=== PATIENT | female | born 1995 | race Caucasian/White ===

== ENCOUNTER → 2019-10-22 13:44 | Outpatient (BNVA) | payer BC, SELFPAY | PROVIDERS: Visit Provider Specialist | DX: R29.90 Unspecified symptoms and signs involving the nervous system (principal); G43.711 Chronic migraine without aura, intractable, with status migrainosus; F84.5 Asperger's syndrome | CPT/HCPCS: 99204 ==

== ENCOUNTER 2019-11-13 08:54 | Outpatient (CLI) | payer BC, SELFPAY ==
--- NOTE | 2019-11-13 08:30 | USCV_ITS ---
Luca Andrade Age: 24 Gender: F : 1995 Exam Date: 11/13/2019 10:24 Ordering Phys: Vielka Jaimes MD Technologist: Lexy Cuevas Exam Location: [facility] [place] Indication: palpitaions BP: / HR: 74 Rhythm: Sinus Technical Quality: Adequate MEASUREMENTS (Male / Female) Normal Values 2D ECHO LV Diastolic Diameter PLAX 3.7 cm 4.2 - 5.9 / 3.9 - 5.3 cm LV Systolic Diameter PLAX 2.5 cm IVS Diastolic Thickness 1.0 cm 0.6 - 1.0 / 0.6 - 0.9 cm IVS Systolic Thickness 1.1 cm LVPW Diastolic Thickness 0.8 cm 0.6 - 1.0 / 0.6 - 0.9 cm LVPW Systolic Thickness 1.3 cm LVOT Diameter 2.0 cm LV Ejection Fraction 2D Teich 59.7 % LV Ejection Fraction MOD 2C 71.8 % LV Ejection Fraction 2C AL 73.6 % LA Diameter 2.6 cm LA Width 2.3 cm LA Height 4.8 cm RA Width 3.0 cm RA Height 4.1 cm M-MODE LV Diastolic Diameter MM 3.9 cm 4.2 - 5.9 / 3.9 - 5.3 cm LV Systolic Diameter MM 2.6 cm LV Ejection Fraction MM Teich 59.6 % IVS Diastolic Thickness MM 0.6 cm 0.6 - 1.0 / 0.6 - 0.9 cm IVS Systolic Thickness MM 0.8 cm LVPW Diastolic Thickness MM 0.9 cm 0.6 - 1.0 / 0.6 - 0.9 cm LVPW Systolic Thickness MM 1.2 cm Aortic Annulus Diameter 2.9 cm LA Ao Ratio MM 0.9 MV E Point Septal Separation 0.3 cm DOPPLER AV Peak Velocity 85.0 cm/s LVOT Peak Velocity 96.0 cm/s AV Area Cont Eq vti 3.3 cm squared AV Area Cont Eq pk 3.5 cm squared MV Peak Velocity 82.0 cm/s MV Area PHT 5.6 cm squared Mitral E to A Ratio 1.6 MV E' Velocity 12.0 cm/s Mitral E to MV E' Ratio 7.7 Mitral E to LV E' Lateral Ratio 6.7 Mitral E to LV E' Septal Ratio 9.2 TR Peak Velocity 129.0 cm/s TR Peak Gradient 6.6 mmHg Right Atrial Pressure 3.0 mmHg Pulmonary Artery Systolic Pressu 9.7 mmHg PV Peak Velocity 69.0 cm/s RV Acceleration Time 0.1 s FINDINGS Left Ventricle Normal left ventricular cavity size. Normal left ventricular systolic function. No regional wall motion abnormalities. Left ventricular ejection fraction is estimated at 59 %. Normal diastolic function. Right Ventricle The right ventricle is normal in size and function. Right Atrium The right atrium is normal in size. Left Atrium The left atrium is normal in size. Mitral Valve Structurally normal mitral valve without significant stenosis or prolapse. There is no mitral regurgitation. Aortic Valve Structurally normal aortic valve without significant sclerosis or stenosis. There is no aortic regurgitation. Tricuspid Valve Structurally normal tricuspid valve without significant stenosis or regurgitation. Pulmonary artery systolic pressure is normal. Pulmonic Valve Structurally normal pulmonic valve without significant stenosis. There is no pulmonic regurgitation. Pericardium Normal pericardium without effusion. Aorta Normal ascending aorta dimension. CONCLUSIONS 1-Normal left ventricular cavity size. Normal left ventricular systolic function. No regional wall motion abnormalities. Left ventricular ejection fraction is estimated at 59 %. Normal diastolic function. 2-No significant valve abnormalities. 3-There is no pericardial effusion. 4-Pulmonary artery systolic pressure is within normal limits. 5-Right atrial pressure is around 5 mm of mercury. 6-There are no prior echocardiogram studies to compare. Pita Mckeon MD (Electronically Signed) Final Date: 13 November 2019 18:44 S
--- NOTE | 2019-11-13 08:45 | MR_ITS ---
WS: [id number] MRI BRAIN WITHOUT CONTRAST HISTORY: G43.909 Migraine, unspecified, not intractable. COMPARISON: None available. TECHNIQUE: Diffusion imaging, multiplanar T1, T2 and FLAIR imaging obtained. No evidence for acute infarct or hemorrhage. Narvaez-white matter differentiation is normal. No signal a bnormalities to suggest glioma within the brain. No signal abnormalities along the optic nerves or pa thway. No remote or acute infarcts are volume loss. Ventricles and extra-axial spaces are normal. No inferior displacement of cerebellar tonsils. On the sagittal T1 sequences there is abnormal signal in the sella turcica. There is intermediate signal measuring 12 x 11 mm with mild expansion of the b jamila cortex. No diffusion-weighted abnormality. Posterior fossa is also unremarkable. Dural venous sinuses and gambell of Alonso demonstrate no abnormality on this unenhanced studies. Paranasal sinuses: Clear. Mastoid air cells: Normal. Calvarium and scalp: Intact. MR/MR head wo con* [id number] IMPRESSION: 1. Mild signal abnormality within the sella turcica with mild bony expansion. Evaluation for possible neoplasm is recommended. Follow-up MRI with contrast an d a noncontrast CT brain may be helpful to further evaluate the bone and sella turcica. Evaluation for possible chordoma or fibrous dysplasia, normal marrow c hanges or additional sella turcica tumor is recommended. 2. No abnormality along the optic pathway or brain tumors are identified.
== END 2019-11-13 08:55 | disposition home or self-care (01) ==
PROVIDERS: PCP Nurse Practitioner Family; Visit Provider Specialist
DX: G43.909 Migraine, unspecified, not intractable, without status migrainosus (principal); R00.2 Palpitations
CPT/HCPCS: 70551; 93306

== ENCOUNTER 2019-11-28 13:36 | Outpatient (CLI) | payer BC, SELFPAY ==
--- NOTE | 2019-11-28 13:49 | MR_ITS ---
WS: [id number] INDICATION: Migraine. Pituitary lesion. TECHNIQUE: MRI of the pituitary without and with gadolinium enhancement. High-resolution images. FINDINGS: Comparison MRI head November 13, 2019 Somewhat prominent pituitary tissue but within normal limits for patient this age. Normal enhancement along the infundibulum. Heterogeneous bone marrow signal in the clivus normal in a patient this age with persistent red marrow. Cavernous sinuses and Meckel's cave are normal in appearance. Normal cave rnous carotid arteries. Normal optic chiasm. No evidence of suprasellar mass. No abnormal gadolinium enhancement. Normal dural venous sinuses. MR/MR pituitary w con [id number] IMPRESSION: 1. Pituitary tissue appears normal in appearance for a patient this age. No ev idence of sellar or suprasellar mass. Homogeneous pituitary enhancement 2. Normal optic chiasm and pituitary infundibulum. 3. Slightly heterogeneous bone marrow signal in the clivus normal normal for a patient this age with persistent red marrow. 4. No abnormal intracranial enhancement. 5. Normal optic chiasm.
--- NOTE | 2019-11-28 14:30 | CT_ITS ---
WS: [id number] CT ORBITS TECHNIQUE: Noncontrast CT of the orbits with coronal and sagittal reformatted images. CLINICAL INFORMATION: Pituitary mass COMPARISON: MRI November 13, 2019 DLP: [id number] scans at [facility] use at least one of these dose optimization techniques: automat ed exposure control; mA and/or kV adjustment per patient size (includes targeted exams where dose is matched to clinical indication); or iterative reconstruction. FINDINGS: The orbits and pituitary are normal in appearance. No evidence of pituitary mass or lesion. Clivus is normal in appearance today. No evidence of destructive mass or lesion. Normal dorsum sellae. Normal fourth ventricle. Partially visualized intracranial contents are normal. Intracranial contents are normal. Normal rectus muscles. Normal intraconal fat. Paranasal sinuses and mastoid air cells well aerated.4 CT/CT orbit BI wo con* [id number] IMPRESSION: 1. Pituitary is normal in appearance. 2. Normal clivus. No evidence of skull base or clival lesion. 3. Normal intraorbital contents.
== END 2019-11-28 13:37 | disposition home or self-care (01) ==
LOC: RADWPI 13:40
PROVIDERS: Family Provider Nurse Practitioner Family; PCP Nurse Practitioner Family; Visit Provider Specialist
DX: E23.6 Other disorders of pituitary gland (principal)
CPT/HCPCS: 70480; 70552; A9579

== ENCOUNTER → 2019-12-18 14:18 | Outpatient (BNVA) | payer BC, SELFPAY | PROVIDERS: Family Provider Nurse Practitioner Family; PCP Nurse Practitioner Family; Visit Provider Specialist | DX: F84.5 Asperger's syndrome (principal); G43.711 Chronic migraine without aura, intractable, with status migrainosus; R29.90 Unspecified symptoms and signs involving the nervous system | CPT/HCPCS: 99214 ==